=== PATIENT | male | born 1995 | race Caucasian/White ===

== ENCOUNTER 2018-09-03 11:13 | Emergency (ER) | payer OTHER, MEDICAID | END 2018-09-03 13:15 | disposition home or self-care (01) | LOC: FTE 11:13 | DX: J06.9 Acute upper respiratory infection, unspecified (principal) | CPT/HCPCS: 71045; 99283-25 ==

== ENCOUNTER 2018-12-23 22:24 | Emergency (ER) | payer OTHER ==
[2018-12-23] MEDS: KETOROLAC 30 MG INJ IM (23:56)
[2018-12-23] MEDS: HYDROCODONE/APAP (5/325) TAB PO (23:56)
== END 2018-12-24 00:11 | disposition home or self-care (01) ==
LOC: FTE 22:24
DX: M54.5 Low back pain (principal)
CPT/HCPCS: 96372; 99284-25